=== PATIENT | male | born 1985 ===

== ENCOUNTER 2024-05-08 13:14 | Inpatient (IN) | payer MEDICAID, SELFPAY ==
[2024-05-08] VITALS (10 sets, daily range): BP systolic 100–117; BP diastolic 58–90; PULSE 94–123; RESP 13–24; TEMP 36.4–36.9; O2SAT 96–99; BMI 20.1
--- NOTE | ~2024-05-08 | XR_ITS ---
EXAMINATION: XR CHEST CLINICAL INFORMATION: weakness COMPARISON: None available. TECHNIQUE: Frontal view of the chest was obtained. FINDINGS: No focal consolidation, pulmonary edema, or pleural effusion. Normal cardiomediastinal silhouette. XR/XR chest 1V IMPRESSION: No acute pulmonary disease. Electronically signed by: Rob Wheatley MD 05/08/2024 06:47 PM [facility]
--- NOTE | 2024-05-08 13:52 | ECG_ITS ---
Test Reason : WEAKNESS Blood Pressure : / mmHG Vent. Rate : 128 BPM Atrial Rate : 128 BPM P-R Int : 130 ms QRS Dur : 076 ms QT Int : 314 ms P-R-T Axes : 076 078 062 degrees QTc Int : 458 ms Sinus tachycardia Right atrial enlargement Borderline ECG No previous ECGs available Referred By: Darren Lim Electronically Signed By:Uvaldo Richardson
[2024-05-08 13:53] LABS: Glucose, Whole Blood > 600 mg/dL (60-115)
--- NOTE | 2024-05-08 13:55 | ED_ITS ---
HPI - General Adult General Chief complaint: General Medical Stated complaint: WEAK,BODYACHES PER EMS Time Seen by Provider: 05/08/24 13:41 Source: patient, family (Son), EMS and internal communications specialist Mode of arrival: EMS Limitations: no limitations History of Present Illness ED Provider: DR. Lim HPI narrative: 38-year-old Citizen Of [place] male came in by ambulance for evaluation of 2 weeks of generalized weakness feeling, thirsty, feeling dry mouth and tongue increase urination patient has no history of diabetes. No sick contacts, no recent travel. Related Data Allergies Allergy/AdvReac Type Severity Reaction Status Date / Time No Known Allergies Allergy Verified 05/08/24 13:43 Review of Systems 2 Review of Systems: All other systems are reviewed and are negative Constitutional: Reports as per HPI and Reports no additional constitutional complaints Eyes: Reports as per HPI and Reports no additional eye complaints Reports system reviewed and no additional complaints, except as documented Cardiovascular: Reports as per HPI and Reports no additional cardiovascular complaints Respiratory: Reports as per HPI and Reports no additional respiratory complaints Gastrointestinal: Reports as per HPI and Reports no additional gastrointestinal complaints Genitourinary: Reports no additional female genitourinary complaints Musculoskeletal: Reports no additional musculoskeletal complaints Skin/Breast: Reports system reviewed and no additional complaints, except as docu Psychiatric: Reports no additional psychiatric complaints Endocrine: Reports no additional endocrine complaints Hematologic/Lymphatic: Reports no additional hematologic/lymphatic complaints Allergic/Immunologic: Reports no additional allergic/immunologic complaints Reports system reviewed and no additional complaints, except as documented and Reports Abnormal speech present PMFSH Social History Social History Alcohol intake: current Alcohol intake frequency: a few times a week Smoked in Last 30 Days: No Use of substances other than those prescribed or required for medical reasons: No Advance Directives: No Advance Directives Information Provided: Yes Do you have a plan to hurt others: No Plan Physical Exam ED Vital Signs: Vital Signs - 24 hr 05/08/24 13:41 05/08/24 14:45 05/08/24 16:39 Temperature 97.5 F Pulse Rate 123 H 99 109 H Respiratory Rate 24 H 17 20 Blood Pressure 110/84 117/90 H 100/76 Pulse Oximetry 96 98 98 Oxygen Delivery Method Room Air Room Air Room Air BMI result Body Mass Index 20.1 Vital signs have been reviewed and appear to be correct. Blood pressure elevated. Heart rate normal. Respiratory rate normal. Temperature normal. Oxygen saturation normal. Appearance: Alert. Oriented X3. No acute distress. Head: Normal external exam. Normocephalic. Atraumatic. No Plasencia signs noted. No raccoon eyes noted Eyes: PERRLA. EOMI. Conjunctiva and sclera normal. Eyelids normal. ENT: TM's Normal. Pharynx normal. Uvula midline. Dry mucous membranes. No trismus noted. No drooling noted. No muffled voice noted. Neck: Normal inspection. Neck supple. FROM. No adenopathy. Thyroid Normal. No meningeal signs. No neck mass noted. CVS: Normal heart rate and rhythm. Heart sound normal. No murmurs noted. Pulses normal throughout. Respiratory: No respiratory distress. Painless inspiration. Breath sounds normal. No wheezes/rales/rhonchi noted. Chest nontender. No accessory muscle usage noted or decreased air movement noted. Abdomen: Soft and nontender. Bowel sounds normal in all 4 quadrants. No distention noted. No organomegaly noted. No visible injury noted. Back: No CVA tenderness. Full range of motion noted. Skin: Skin warm and dry. Normal skin color. Normal skin turgor. No rashes/lesions/lacerations noted. Extremities: No lower extremity edema. Extremities exhibit normal range of motion. Extremities nontender. Neuro: Oriented X 3. Cranial nerve exam: II-XII are grossly intact No motor deficit. No sensory deficit. Reflexes normal. Course Reevaluation(s) Reevaluation #1: You onset DM with DKA, will admit the patient to ICU for electrolyte monitoring and start on insulin drip with IV hydration case discussed with Dr. Funes who accepted the patient to ICU. Time: 17:30 Medications Administered Generic Name Dose Route Start Last Admin Trade Name Freq PRN Reason Stop Dose Admin Sodium Chloride 1,000 mls @ 999 mls/hr 05/08/24 17:14 05/08/24 17:22 Ns IV 05/08/24 18:14 999 mls/hr .Q1H1M ONE Administration Discontinued Medications Generic Name Dose Route Start Last Admin Trade Name Freq PRN Reason Stop Dose Admin Sodium Chloride 1,000 mls @ 999 mls/hr 05/08/24 13:52 05/08/24 15:56 Ns IV 05/08/24 14:52 Infused .Q1H1M ONE Infusion Insulin Human Regular 5 unit 05/08/24 13:54 05/08/24 14:44 Insulin Regular, Human 100 Unit/Ml 10 Ml Vial IVPUSH 05/08/24 13:55 5 unit ONCE ONE Administration Medical Decision Making Differential Diagnosis Differential Diagnoses: The differential diagnosis associated with the presentation includes (New onset DM, DKA, electrolyte derangement, dehydration, severe anemia, tachycardia, UTI, pneumonia, pneumothorax, pleural effusion.) Admission/Observation Consideration of admission/observation: Escalation of care including admission/observation considered Consult Healthcare Provider Management of the patient was discussed with: Hospitalist (Dr. Funes) Lab Data MDM Lab Attestation statement: I reviewed the patient's lab results. 05/08/24 14:07 05/08/24 14:07 Labs: Lab Results 05/08/24 05/08/24 05/08/24 Range/Units 13:47 14:07 14:31 WBC 5.2 (4.8-10.8) X10*3/uL RBC 6.93 H (4.60-5.80) X10*6/uL Hgb 17.5 (14.0-18.0) g/dl Hct 55.0 H (42.0-52.0) % MCV 79.4 L (80.0-98.0) fL MCH 25.3 L (27.0-33.0) pg MCHC 31.8 (31.0-36.0) g/dl RDW 13.3 (11.0-16.0) % Plt Count 399 (160-400) X10*3/uL MPV 9.6 (9.4-12.4) fL Immature Gran % (Auto) 0.2 (0.0-0.4) % Neut % (Auto) 52.0 (45-73) % Lymph % (Auto) 37.7 (20-40) % [place] % (Auto) 5.6 (2-11) % Eos % (Auto) 3.7 (0-4) % Baso % (Auto) 0.8 (0-2) % Lymph # (Auto) 1.9 (1.2-4.9) X10*3/uL [place] # (Auto) 0.3 (0.1-1.2) X10*3/uL Eos # (Auto) 0.2 (0.0-0.4) X10*3/uL Baso # (Auto) 0.0 (0.0-0.2) X10*3/uL Abs Immat Gran (auto) 0.01 (0.00-0.03) X10*3/uL Absolute Neuts (auto) 2.7 (2.0-8.3) x10*3/uL Absolute Nucleated RBC 0.000 (0.0-0.012) X10*3/uL Nucleated RBC % (auto) 0.0 (0.0-0.2) /100WBC PT (10.9-12.4) SEC INR (0.9-1.1) VBG pH (7.32-7.43) VBG pCO2 mmHg VBG pO2 mmHg VBG HCO3 (22-26) mmol/L VBG O2 Saturation % VBG Base Excess mmol/L Sodium 145 (135-145) mmol/L Potassium 5.4 H (3.3-5.1) mmol/L Chloride 101 (96-108) mmol/L Carbon Dioxide 13 L (22-29) mmol/L Anion Gap 36 H (12-20) BUN 21 H (9-16) mg/dL Creatinine 2.08 H (0.5-1.4) mg/dL Estim Creat Clear Calc 38.1 Estimated GFR 36 POC Glucose > 600 H* (60-115) mg/dL Random Glucose 730 H* (60-115) mg/dL Calcium 10.2 (8.4-10.2) mg/dL Total Bilirubin 0.4 (0.0-1.0) mg/dL Direct Bilirubin 0.1 (0.0-0.5) mg/dL AST 42 H (5-37) U/L ALT 54 H (0-40) U/L Alkaline Phosphatase 149 H (39-117) U/L Troponin I High Sens < 2.7 (<3.5-35.0) ng/L Total Protein 9.5 H (6.5-8.0) g/dL Albumin 4.8 (3.5-5.0) g/dL Beta-Hydroxybutyrate (0.02-0.27) mmol/L Urine Color Yellow Urine Appearance Clear Urine pH 5.0 (5.0-9.0) Ur Specific Kelly >= 1.030 H (1.005-1.025) Urine Protein 30 (1+) H (Neg-Trace) mg/dL Urine Glucose (UA) >=1000 H (Negative) mg/dL Urine Ketones >=160 (Negative) mg/dL Urine Blood Negative (Negative) Urine Nitrite Negative (Negative) Ur Leukocyte Esterase Negative (Negative) Urine RBC 0-2 (0-2) /HPF Urine WBC 0-5 (0-5) /HPF Ur Squamous Epith Cells 0-2 (0-2) /HPF Urine Bacteria None Seen (None Seen) Hyaline Casts 0-2 (0-2) /LPF Influenza Type A (PCR) NEGATIVE (Negative) Influenza Type B (PCR) NEGATIVE (Negative) RSV RNA Qual (PCR) NEGATIVE (Negative) SARS-CoV-2 RNA (RT-PCR) NEGATIVE (Negative) 05/08/24 05/08/24 05/08/24 Range/Units 14:41 15:34 16:22 WBC (4.8-10.8) X10*3/uL RBC (4.60-5.80) X10*6/uL Hgb (14.0-18.0) g/dl Hct (42.0-52.0) % MCV (80.0-98.0) fL MCH (27.0-33.0) pg MCHC (31.0-36.0) g/dl RDW (11.0-16.0) % Plt Count (160-400) X10*3/uL MPV (9.4-12.4) fL Immature Gran % (Auto) (0.0-0.4) % Neut % (Auto) (45-73) % Lymph % (Auto) (20-40) % [place] % (Auto) (2-11) % Eos % (Auto) (0-4) % Baso % (Auto) (0-2) % Lymph # (Auto) (1.2-4.9) X10*3/uL [place] # (Auto) (0.1-1.2) X10*3/uL Eos # (Auto) (0.0-0.4) X10*3/uL Baso # (Auto) (0.0-0.2) X10*3/uL Abs Immat Gran (auto) (0.00-0.03) X10*3/uL Absolute Neuts (auto) (2.0-8.3) x10*3/uL Absolute Nucleated RBC (0.0-0.012) X10*3/uL Nucleated RBC % (auto) (0.0-0.2) /100WBC PT 11.3 (10.9-12.4) SEC INR 1.0 (0.9-1.1) VBG pH (7.32-7.43) VBG pCO2 mmHg VBG pO2 mmHg VBG HCO3 (22-26) mmol/L VBG O2 Saturation % VBG Base Excess mmol/L Sodium (135-145) mmol/L Potassium (3.3-5.1) mmol/L Chloride (96-108) mmol/L Carbon Dioxide (22-29) mmol/L Anion Gap (12-20) BUN (9-16) mg/dL Creatinine (0.5-1.4) mg/dL Estim Creat Clear Calc Estimated GFR POC Glucose > 600 H* > 600 H* (60-115) mg/dL Random Glucose (60-115) mg/dL Calcium (8.4-10.2) mg/dL Total Bilirubin (0.0-1.0) mg/dL Direct Bilirubin (0.0-0.5) mg/dL AST (5-37) U/L ALT (0-40) U/L Alkaline Phosphatase (39-117) U/L Troponin I High Sens (<3.5-35.0) ng/L Total Protein (6.5-8.0) g/dL Albumin (3.5-5.0) g/dL Beta-Hydroxybutyrate (0.02-0.27) mmol/L Urine Color Urine Appearance Urine pH (5.0-9.0) Ur Specific Kelly (1.005-1.025) Urine Protein (Neg-Trace) mg/dL Urine Glucose (UA) (Negative) mg/dL Urine Ketones (Negative) mg/dL Urine Blood (Negative) Urine Nitrite (Negative) Ur Leukocyte Esterase (Negative) Urine RBC (0-2) /HPF Urine WBC (0-5) /HPF Ur Squamous Epith Cells (0-2) /HPF Urine Bacteria (None Seen) Hyaline Casts (0-2) /LPF Influenza Type A (PCR) (Negative) Influenza Type B (PCR) (Negative) RSV RNA Qual (PCR) (Negative) SARS-CoV-2 RNA (RT-PCR) (Negative) 05/08/24 05/08/24 05/08/24 Range/Units 16:32 16:34 16:49 WBC (4.8-10.8) X10*3/uL RBC (4.60-5.80) X10*6/uL Hgb (14.0-18.0) g/dl Hct (42.0-52.0) % MCV (80.0-98.0) fL MCH (27.0-33.0) pg MCHC (31.0-36.0) g/dl RDW (11.0-16.0) % Plt Count (160-400) X10*3/uL MPV (9.4-12.4) fL Immature Gran % (Auto) (0.0-0.4) % Neut % (Auto) (45-73) % Lymph % (Auto) (20-40) % [place] % (Auto) (2-11) % Eos % (Auto) (0-4) % Baso % (Auto) (0-2) % Lymph # (Auto) (1.2-4.9) X10*3/uL [place] # (Auto) (0.1-1.2) X10*3/uL Eos # (Auto) (0.0-0.4) X10*3/uL Baso # (Auto) (0.0-0.2) X10*3/uL Abs Immat Gran (auto) (0.00-0.03) X10*3/uL Absolute Neuts (auto) (2.0-8.3) x10*3/uL Absolute Nucleated RBC (0.0-0.012) X10*3/uL Nucleated RBC % (auto) (0.0-0.2) /100WBC PT (10.9-12.4) SEC INR (0.9-1.1) VBG pH 7.16 L* 7.15 L* (7.32-7.43) VBG pCO2 34 35 mmHg VBG pO2 44 49 mmHg VBG HCO3 12 L 12 L (22-26) mmol/L VBG O2 Saturation 73.0 73.0 % VBG Base Excess -14.7 -15.0 mmol/L Sodium (135-145) mmol/L Potassium (3.3-5.1) mmol/L Chloride (96-108) mmol/L Carbon Dioxide (22-29) mmol/L Anion Gap (12-20) BUN (9-16) mg/dL Creatinine (0.5-1.4) mg/dL Estim Creat Clear Calc Estimated GFR POC Glucose (60-115) mg/dL Random Glucose (60-115) mg/dL Calcium (8.4-10.2) mg/dL Total Bilirubin (0.0-1.0) mg/dL Direct Bilirubin (0.0-0.5) mg/dL AST (5-37) U/L ALT (0-40) U/L Alkaline Phosphatase (39-117) U/L Troponin I High Sens (<3.5-35.0) ng/L Total Protein (6.5-8.0) g/dL Albumin (3.5-5.0) g/dL Beta-Hydroxybutyrate 11.23 H (0.02-0.27) mmol/L Urine Color Urine Appearance Urine pH (5.0-9.0) Ur Specific Kelly (1.005-1.025) Urine Protein (Neg-Trace) mg/dL Urine Glucose (UA) (Negative) mg/dL Urine Ketones (Negative) mg/dL Urine Blood (Negative) Urine Nitrite (Negative) Ur Leukocyte Esterase (Negative) Urine RBC (0-2) /HPF Urine WBC (0-5) /HPF Ur Squamous Epith Cells (0-2) /HPF Urine Bacteria (None Seen) Hyaline Casts (0-2) /LPF Influenza Type A (PCR) (Negative) Influenza Type B (PCR) (Negative) RSV RNA Qual (PCR) (Negative) SARS-CoV-2 RNA (RT-PCR) (Negative) Independent Interpretation I performed an independent interpretation of an: Plain X-Ray (Chest: No acute intrathoracic pathology.) Radiology Impression Discussion of test interpretation with radiology: I have reviewed the radiologist's reading. Critical Care Time Critical Care Time Critical Care Time: Yes Total Critical Care Time: 60 Attestation: The patient was critically ill with a high probability of imminent or life- threatening deterioration. I spent greater than 30 minutes of discontinuous time evaluating the patient, delivering critical care at the bedside, discussing evaluating data with consultants. Critical care time does not include time spent performing separately billable procedures or teaching. Time spent performing critical care was 60 minutes. Discharge Plan Discharge Clinical Impression: DKA (diabetic ketoacidosis) Patient Disposition: Admitted As Inpatient Print Language: Gladysili
[2024-05-08 14:14] LABS: MANUAL DIFF FLAG NO
[2024-05-08 14:15] LABS: Basophils Percent Auto 0.8 % (0-2); Eosinophils Absolute Auto 0.2 X10*3/uL (0.0-0.4); Eosinophils Percent Auto 3.7 % (0-4); Hemoglobin 17.5 g/dl (14.0-18.0); Imm Gran Abs Auto 0.01 X10*3/uL (0.00-0.03); Imm Gran Pct Auto 0.2 % (0.0-0.4); Lymphocytes Absolute Auto 1.9 X10*3/uL (1.2-4.9); Lymphocytes Percent Auto 37.7 % (20-40); Mean Corpuscular HGB Conc 31.8 g/dl (31.0-36.0); Mean Corpuscular Hemoglobin 25.3 pg (27.0-33.0); Mean Corpuscular Volume 79.4 fL (80.0-98.0); Mean Platelet Volume 9.6 fL (9.4-12.4); Monocytes Absolute Auto 0.3 X10*3/uL (0.1-1.2); Monocytes Percent Auto 5.6 % (2-11); Neutrophils Absolute Auto 2.7 x10*3/uL (2.0-8.3); Platelet Count 399 X10*3/uL (160-400); Red Blood Count 6.93 X10*6/uL (4.60-5.80); Red Cell Distribution Width 13.3 % (11.0-16.0); White Blood Count 5.2 X10*3/uL (4.8-10.8)
[2024-05-08] MEDS: 0.9 % Sodium Chloride 1,000 ML 999 ML IV ×2 (14:27→17:22)
[2024-05-08] MEDS: Insulin Regular, Human 100 UNIT/ML 10 ML VIAL IVPUSH (14:44)
[2024-05-08 14:50] LABS: Troponin-I High Sensitivity < 2.7 ng/L (<3.5-35.0)
[2024-05-08 14:53] LABS: Glucose, Whole Blood > 600 mg/dL (60-115)
--- NOTE | 2024-05-08 14:53 | PC.NURSE ---
patient a&ox2, iv inserted, some labs drawn- tech to draw remaining labs, nasal swab performed, ekg performed, ekg monitor tech applied- pt st on monitor, poc obtained read high x2, urine obtained, IVF started per order, pt medicated with insulin per orders. pt and son state he has no history of diabetes and states he has excessive thirst. son continues to ask for his father to have something to drink, son was educated by this nurse and Dr. Lim that he is unable to have anything other than a few ice chips and he will be given IVF for the time being. call nuno within reach, plan of care ongoing.
[2024-05-08 14:58] LABS: Appearance Urine Clear; Color Urine Yellow; Glucose Urine UA >=1000 mg/dL (Negative); Leukocyte Esterase Urine Negative (Negative); Nitrite Urine Negative (Negative); Specific Gravity - Urine >= 1.030 (1.005-1.025); UMIC TRIGGER UACC YES; Urine Blood Negative (Negative); Urine Ketones >=160 mg/dL (Negative); Urine Protein 30 (1+) mg/dL (Neg-Trace)
[2024-05-08 15:03] LABS: Bacteria Urine None Seen (None Seen); Hyaline Casts Urine 0-2 /LPF (0-2); RBC Urine 0-2 /HPF (0-2); Squamous Epithelial Cell Urine 0-2 /HPF (0-2); WBC Urine 0-5 /HPF (0-5)
[2024-05-08 15:34] LABS: Influenza A PCR NEGATIVE (Negative); Influenza B PCR NEGATIVE (Negative); Resp Syncy Virus RNA Qual PCR NEGATIVE (Negative); SARS COV2 PCR INHOUSE NEGATIVE (Negative)
[2024-05-08 15:48] LABS: Prothrombin Time 11.3 SEC (10.9-12.4)
--- NOTE | 2024-05-08 16:26 | PC.NURSE ---
pt a difficult draw, attempting with another PCT to draw pt
[2024-05-08 16:28] LABS: Glucose, Whole Blood > 600 mg/dL (60-115)
--- NOTE | 2024-05-08 16:31 | MHC.EDTECH ---
late entry: this tech did a POC glucose test on the pt and the result came out as HI, reported to RN
--- NOTE | 2024-05-08 16:40 | PC.NURSE ---
[id number] planning director utilized
[2024-05-08 16:59] LABS: VBG Base Excess -14.7 mmol/L; VBG HCO3 12 mmol/L (22-26); VBG pCO2 34 mmHg; VBG pH 7.16 (7.32-7.43); VBG pO2 44 mmHg
[2024-05-08 16:59] LABS: VBG HCO3 12 mmol/L (22-26); VBG pCO2 35 mmHg; VBG pH 7.15 (7.32-7.43); VBG pO2 49 mmHg
[2024-05-08 17:01] LABS: Albumin Level 4.8 g/dL (3.5-5.0); Anion Gap 36 (12-20); Aspartate Amino Transferase 42 U/L (5-37); Bilirubin Direct 0.1 mg/dL (0.0-0.5); Bilirubin Total 0.4 mg/dL (0.0-1.0); Blood Urea Nitrogen 21 mg/dL (9-16); Calcium 10.2 mg/dL (8.4-10.2); Carbon Dioxide 13 mmol/L (22-29); Chloride 101 mmol/L (96-108); Creatinine Clr Calc Pharmacy 38.1; Estimated Glomerular Filt Rate 36; Glucose Random 730 mg/dL (60-115); Potassium 5.4 mmol/L (3.3-5.1); Sodium 145 mmol/L (135-145); Total Protein 9.5 g/dL (6.5-8.0)
[2024-05-08 17:02] LABS: Venous Blood Gas Refer to POC result
[2024-05-08 17:23] LABS: Beta-Hydroxybutyrate 11.23 mmol/L (0.02-0.27)
[2024-05-08 17:24] LABS: Alanine Aminotransferase 54 U/L (0-40); Alkaline Phosphatase 149 U/L (39-117)
[2024-05-08] MEDS: Insulin Regular/NS 100 UNIT/100 ML PLAST..BAG 7 UNIT IVCONT (17:56)
[2024-05-08] MEDS: Heparin Sodium,Porcine 5,000 UNIT/ML VIAL 5000 UNIT SUBCUT (18:02)
--- NOTE | 2024-05-08 18:17 | PC.NURSE ---
This RN attempted to call ED for handoff - unable to obtain handoff at this time.
[2024-05-08] MEDS: Lactated Ringers 1,000 ML 150 ML IVCONT (18:46)
[2024-05-08 19:03] LABS: Glucose, Whole Blood 482 mg/dL (60-115)
[2024-05-08 20:06] LABS: Glucose, Whole Blood 361 mg/dL (60-115)
--- NOTE | 2024-05-08 20:24 | PM.CCHP ---
History of Present Illness Date of Service: 05/08/24 Attending physician on admission: Toro Funes Chief Complaint: Generalized weakness ?The patient is a 38-year-old [place] from [facility] speaking only male with no past medical history who presented to the emergency department after 2 weeks with generalized weakness, thirsty, and increased urination.? He has no history of diabetes.?? On arrival to the emergency department,? patient is tachycardic to 120s,? afebrile. Laboratory data significant for? venous gas:? 7.16/34/44/12, serum potassium 5.4,? serum bicarb 13, anion gap 36, BUN 21, creatinine 2.08, random glucose 730, beta hydroxybutyrate 11.23 ? ED course:? the patient received a total of 2 L bolus,? 5 units IV push of insulin and initiated on insulin drip.? On arrival to ICU,? patient?s son brought medications from home,? were states the patient is on Pylera (Bismuth subcitrate, metronidazole, tetracycline) combination drug,? but patient was unsure as to why he was taking this medication,? he states he was given medication by? [facility] provider after he had blood work done. Will assume it is for treatment of? H pylori as patient was also placed on famotidine. But will obtain records from facility? ? Review of Systems Review of Systems: Yes all other systems are reviewed and are negative [facility] Social History Social History Household Members: Spouse and Family Housing: House Alcohol intake: current Alcohol intake frequency: a few times a week Patient Tobacco Use Status: Never used Tobacco Smoked in Last 30 Days: No Use of substances other than those prescribed or required for medical reasons: No Currently Displaying Signs/Symptoms of Drug Intoxication Withdrawal: No Any prior treatment program specific to substance use: No Have you been hit, kicked, punched, or otherwise hurt by someone within the past year? If so, by whom?: No Do you feel safe in your current relationship?: No Is there a partner from a previous relationship who is making you feel unsafe now?: No Are you made to feel afraid or neglected: No Advance Directives: No Advance Directives Information Provided: Yes Do you have a plan to hurt others: No Plan Recently lost weight without trying: No Eating poorly because of decreased appetite: No Nutrition Risks: Acute nausea or vomiting x1 week and Diabetes new onset/Uncontrolled Poor oral hygiene: No Meds Allergies Allergy/AdvReac Type Severity Reaction Status Date / Time No Known Allergies Allergy Verified 05/08/24 13:43 Active Medications: Current Medications Heparin Sodium (Porcine) (Heparin Sodium,Porcine 5,000 Unit/Ml Vial) 5,000 unit SUBCUT Q8H [facility] Last Admin: 05/08/24 18:02 Dose: 5,000 unit Insulin Human Regular (Myxredlin) 100 unit in 100 mls @ 7 mls/hr IVCONT .[id number] [facility]; Protocol Last Titration: 05/08/24 20:07 Dose: 3.5 unit/hr, 3.5 mls/hr Dextrose (D10) 250 mls @ 750 mls/hr IV Q30M PRN PRN Reason: BG <70 Lactated Ringer's (Lr) 1,000 mls @ 150 mls/hr IVCONT .[id number] [facility] Last Admin: 05/08/24 18:46 Dose: 150 mls/hr Sodium Chloride (0.9 % Sodium Chloride Flush 3 Ml Syringe) 3 ml IVFLUSH QSHIFT [facility] Home Medications ?Medication ?Instructions ?Recorded ?Confirmed ?Last Taken ?Type acetaminophen 500 mg tablet 1,000 mg PO Q6H PRN pain 05/08/24 05/08/24 Unknown History bismuth subcit K 140 3 cap PO QIDACHS 05/08/24 05/08/24 05/05/24 History mg-metronidazole 125 mg-tetracycline 125 mg cap (Pylera) calcium carbonate (Ton-Gest 500 mg PO BID PRN Heartburn 05/08/24 05/08/24 05/05/24 History Antacid) famotidine 20 mg tablet 20 mg PO BID 05/08/24 05/08/24 05/05/24 History naproxen 500 mg tablet 500 mg PO BIDWM 05/08/24 05/08/24 05/05/24 History pantoprazole 20 mg tablet,delayed 20 mg PO BID@0630,1630 05/08/24 05/08/24 05/05/24 History release Physical Exam Vital Signs: Vital Signs: Last Vital Signs Temp 98.3 F 05/08/24 19:44 Pulse 106 H 12/23/24 19:44 Resp 17 05/08/24 19:44 BP 106/78 05/08/24 19:44 Pulse Ox 99 05/08/24 20:18 O2 Del Method Room Air 05/08/24 20:18 BMI result Body Mass Index 20.1 ?General:? Alert oriented x3 no acute distress.? Speaking full sentences.? Speech is well articulated, thought process is coherent.? Following all commands. ?HEENT:? Head is normocephalic, atraumatic, pupils equal round reactive to light accommodation bilaterally.? Extraocular movements appear intact.? Buccal mucosa is dry, lips dry, , Neck is supple without lymphadenopathy. ?Cardiac:? Clear S1-S2, no murmurs rubs or gallops. ?Pulmonary:? Clear to auscultation, no wheezes, rales or rhonchi. ?Abdomen:? ?Abdomen soft, non-tender, non-distended. Normal bowel sounds. No pulsatile mass. No hepatosplenomegaly. ?Musculoskeletal:? Moving all 4 extremities upon request a major joints, there is no crepitus or tenderness.? The strength is 5/5 bilaterally and throughout all 4 extremities.? Gait not assessed at this point. ?Neurologic:? cranial nerves 2-12 are grossly intact.? No focal deficits noted.Motor strength as above.?? ?Skin:? Intact, no lesions, edema, erythema, clubbing or cyanosis.? No ulcers. Vascular:? 2+ pulses upper and lower extremities distally.? Results Labs 05/09/24 05:18 05/09/24 05:18 Labs: Laboratory Results - last 24 hr 05/08/24 05/08/24 05/08/24 13:47 14:07 14:31 MCV 79.4 L MCH 25.3 L MCHC 31.8 RDW 13.3 Plt Count 399 MPV 9.6 Immature Gran % (Auto) 0.2 Neut % (Auto) 52.0 Lymph % (Auto) 37.7 Turner % (Auto) 5.6 Eos % (Auto) 3.7 Baso % (Auto) 0.8 Lymph # (Auto) 1.9 Turner # (Auto) 0.3 Eos # (Auto) 0.2 Baso # (Auto) 0.0 Abs Immat Gran (auto) 0.01 Absolute Neuts (auto) 2.7 Absolute Nucleated RBC 0.000 Nucleated RBC % (auto) 0.0 PT INR VBG pH VBG pCO2 VBG pO2 VBG HCO3 VBG O2 Saturation VBG Base Excess Anion Gap 36 H Estim Creat Clear Calc 38.1 Estimated GFR 36 POC Glucose > 600 H* Random Glucose 730 H* Calcium 10.2 Total Bilirubin 0.4 Direct Bilirubin 0.1 AST 42 H ALT 54 H Alkaline Phosphatase 149 H Troponin I High Sens < 2.7 Total Protein 9.5 H Albumin 4.8 Beta-Hydroxybutyrate Urine Color Yellow Urine Appearance Clear Urine pH 5.0 Ur Specific [place] >= 1.030 H Urine Protein 30 (1+) H Urine Glucose (UA) >=1000 H Urine Ketones >=160 Urine Blood Negative Urine Nitrite Negative Ur Leukocyte Esterase Negative Urine RBC 0-2 Urine WBC 0-5 Ur Squamous Epith Cells 0-2 Urine Bacteria None Seen Hyaline Casts 0-2 Influenza Type A (PCR) NEGATIVE Influenza Type B (PCR) NEGATIVE RSV RNA Qual (PCR) NEGATIVE SARS-CoV-2 RNA (RT-PCR) NEGATIVE 05/08/24 05/08/24 05/08/24 14:41 15:34 16:22 MCV MCH MCHC RDW Plt Count MPV Immature Gran % (Auto) Neut % (Auto) Lymph % (Auto) Turner % (Auto) Eos % (Auto) Baso % (Auto) Lymph # (Auto) Turner # (Auto) Eos # (Auto) Baso # (Auto) Abs Immat Gran (auto) Absolute Neuts (auto) Absolute Nucleated RBC Nucleated RBC % (auto) PT 11.3 INR 1.0 VBG pH VBG pCO2 VBG pO2 VBG HCO3 VBG O2 Saturation VBG Base Excess Anion Gap Estim Creat Clear Calc Estimated GFR POC Glucose > 600 H* > 600 H* Random Glucose Calcium Total Bilirubin Direct Bilirubin AST ALT Alkaline Phosphatase Troponin I High Sens Total Protein Albumin Beta-Hydroxybutyrate Urine Color Urine Appearance Urine pH Ur Specific [place] Urine Protein Urine Glucose (UA) Urine Ketones Urine Blood Urine Nitrite Ur Leukocyte Esterase Urine RBC Urine WBC Ur Squamous Epith Cells Urine Bacteria Hyaline Casts Influenza Type A (PCR) Influenza Type B (PCR) RSV RNA Qual (PCR) SARS-CoV-2 RNA (RT-PCR) 05/08/24 05/08/24 05/08/24 16:32 16:34 16:49 MCV MCH MCHC RDW Plt Count MPV Immature Gran % (Auto) Neut % (Auto) Lymph % (Auto) Turner % (Auto) Eos % (Auto) Baso % (Auto) Lymph # (Auto) Turner # (Auto) Eos # (Auto) Baso # (Auto) Abs Immat Gran (auto) Absolute Neuts (auto) Absolute Nucleated RBC Nucleated RBC % (auto) PT INR VBG pH 7.16 L* 7.15 L* VBG pCO2 34 35 VBG pO2 44 49 VBG HCO3 12 L 12 L VBG O2 Saturation 73.0 73.0 VBG Base Excess -14.7 -15.0 Anion Gap Estim Creat Clear Calc Estimated GFR POC Glucose Random Glucose Calcium Total Bilirubin Direct Bilirubin AST ALT Alkaline Phosphatase Troponin I High Sens Total Protein Albumin Beta-Hydroxybutyrate 11.23 H Urine Color Urine Appearance Urine pH Ur Specific [place] Urine Protein Urine Glucose (UA) Urine Ketones Urine Blood Urine Nitrite Ur Leukocyte Esterase Urine RBC Urine WBC Ur Squamous Epith Cells Urine Bacteria Hyaline Casts Influenza Type A (PCR) Influenza Type B (PCR) RSV RNA Qual (PCR) SARS-CoV-2 RNA (RT-PCR) 05/08/24 05/08/24 18:59 20:02 MCV MCH MCHC RDW Plt Count MPV Immature Gran % (Auto) Neut % (Auto) Lymph % (Auto) Turner % (Auto) Eos % (Auto) Baso % (Auto) Lymph # (Auto) Turner # (Auto) Eos # (Auto) Baso # (Auto) Abs Immat Gran (auto) Absolute Neuts (auto) Absolute Nucleated RBC Nucleated RBC % (auto) PT INR VBG pH VBG pCO2 VBG pO2 VBG HCO3 VBG O2 Saturation VBG Base Excess Anion Gap Estim Creat Clear Calc Estimated GFR POC Glucose 482 H* 361 H* Random Glucose Calcium Total Bilirubin Direct Bilirubin AST ALT Alkaline Phosphatase Troponin I High Sens Total Protein Albumin Beta-Hydroxybutyrate Urine Color Urine Appearance Urine pH Ur Specific [place] Urine Protein Urine Glucose (UA) Urine Ketones Urine Blood Urine Nitrite Ur Leukocyte Esterase Urine RBC Urine WBC Ur Squamous Epith Cells Urine Bacteria Hyaline Casts Influenza Type A (PCR) Influenza Type B (PCR) RSV RNA Qual (PCR) SARS-CoV-2 RNA (RT-PCR) Imaging Radiologist's Impressions: Impressions Chest X-Ray 05/08/24 13:52 IMPRESSION: No acute pulmonary disease. Electronically signed by: Rob Wheatley MD 05/08/2024 06:47 PM EST Assessment and Plan (1) DKA (diabetic ketoacidosis): Status: Acute (2) Diabetes mellitus: Status: Acute Plan 38-year-old? so he was speaking only patient with no past medical history now newly diagnosed diabetic in diabetic ketoacidosis? requiring insulin drip Neuro:? no acute issues?? Cardiac:? no acute issues Pulmonary:? no acute issues?? Renal:? WALLY- ? most likely related to hypoperfusion, nonoliguric.? Continue IV fluid.? Continue to check renal induces and urine output Hyperkalemia-? most likely related to DKA.? Closely monitor electrolytes GI:?? ? H pylori:? patient was? taking Pylera as well as famotidine for 2 weeks,? assuming for the treatment of H pylori.? Office is closed at this time but will? request records in the morning to confirm diagnosis.? We will continue medications,? as this could be the possible exacerbation for DKA Endo:?Newly diagnosed diabetes /diabetic ketoacidosis-? continue insulin drip until her gap is close. Follow DKA protocol? ID:? ? see GI plan ? Heme/Onc:? No acute issues. Psych:? No acute issues. Miscellaneous:? No acute issues. Prophylaxis: ? heparin subcut Diet: ? NPO? with sips of water ice chips Critical care time: does not qualify for critical care? CODE: FULL
--- NOTE | 2024-05-08 20:38 | PHA.MEDREC ---
Addendum entered by Wagner Albert RPh 05/08/24 20:47: Reviewed by [facility] Original Note: Pharmacy Consult ? Medication Reconciliation Pharmacy has completed the medication reconciliation. Spoke to patient through [employer] [id number] to confirm med list. patient states he has been in the [place] for 11 moths. Patient had a bag of medication with him. patient states he last took his medications 3 days ago.
[2024-05-08 20:47] LABS: VBG HCO3 10 mmol/L (22-26); VBG pCO2 19 mmHg; VBG pH 7.32 (7.32-7.43); VBG pO2 207 mmHg
[2024-05-08 21:00] LABS: Venous Blood Gas Refer to POC result
[2024-05-08 21:03] LABS: Glucose, Whole Blood 270 mg/dL (60-115)
[2024-05-08 21:14] LABS: Anion Gap 23 (12-20); Blood Urea Nitrogen 17 mg/dL (9-16); Calcium 9.2 mg/dL (8.4-10.2); Carbon Dioxide 9 mmol/L (22-29); Chloride 122 mmol/L (96-108); Creatinine Clr Calc Pharmacy 52.1; Estimated Glomerular Filt Rate 51; Glucose Random 347 mg/dL (60-115); Magnesium 2.4 mg/dL (1.6-2.6); Phosphorus 2.6 mg/dL (2.7-4.5); Sodium 150 mmol/L (135-145)
[2024-05-08] MEDS: Famotidine 20 MG TABLET PO (21:40)
[2024-05-08 21:46] LABS: Lactic Acid 1.4 mmol/L (0.5-2.0)
[2024-05-08 21:59] LABS: Glucose, Whole Blood 289 mg/dL (60-115)
[2024-05-08] MEDS: Potassium Phosphate/NS 15 MMOL/250 ML PLAST..BAG 62.5 MMOL IV (22:19)
[2024-05-08 22:27] LABS: Lipase 19 U/L (8-78)
[2024-05-08 23:11] LABS: Glucose, Whole Blood 219 mg/dL (60-115)
[2024-05-09] VITALS (17 sets, daily range): BP systolic 105–120; BP diastolic 62–85; PULSE 60–93; RESP 10–18; TEMP 36.2–37; O2SAT 98–100; BMI 20.1
[2024-05-09 00:04] LABS: Glucose, Whole Blood 208 mg/dL (60-115)
[2024-05-09 01:17] LABS: Glucose, Whole Blood 220 mg/dL (60-115)
[2024-05-09] MEDS: Dextrose 5 % and Lactated Ring 1,000 ML 150 ML IVCONT ×2 (01:18→08:26)
[2024-05-09] MEDS: Heparin Sodium,Porcine 5,000 UNIT/ML VIAL 5000 UNIT SUBCUT ×3 (01:18→16:52)
[2024-05-09 03:02] LABS: Glucose, Whole Blood 221 mg/dL (60-115)
[2024-05-09 03:02] LABS: Glucose, Whole Blood 269 mg/dL (60-115)
[2024-05-09 04:11] LABS: Glucose, Whole Blood 228 mg/dL (60-115)
[2024-05-09 05:13] LABS: Glucose, Whole Blood 228 mg/dL (60-115)
[2024-05-09] MEDS: Pantoprazole Sodium 40 MG/10 ML VIAL IVPUSH ×2 (05:17→16:49)
[2024-05-09 05:23] LABS: VBG Base Excess -2.5 mmol/L; VBG HCO3 20 mmol/L (22-26); VBG pCO2 31 mmHg; VBG pH 7.42 (7.32-7.43); VBG pO2 66 mmHg
[2024-05-09 05:27] LABS: Venous Blood Gas Refer to POC result
[2024-05-09 05:28] LABS: MANUAL DIFF FLAG NO
[2024-05-09 05:30] LABS: Basophils Percent Auto 0.8 % (0-2); Eosinophils Absolute Auto 0.4 X10*3/uL (0.0-0.4); Eosinophils Percent Auto 8.2 % (0-4); Hematocrit 41.1 % (42.0-52.0); Hemoglobin 13.8 g/dl (14.0-18.0); Imm Gran Abs Auto 0.01 X10*3/uL (0.00-0.03); Imm Gran Pct Auto 0.2 % (0.0-0.4); Lymphocytes Absolute Auto 2.7 X10*3/uL (1.2-4.9); Lymphocytes Percent Auto 55.6 % (20-40); Mean Corpuscular HGB Conc 33.6 g/dl (31.0-36.0); Mean Corpuscular Hemoglobin 25.7 pg (27.0-33.0); Mean Corpuscular Volume 76.7 fL (80.0-98.0); Mean Platelet Volume 8.9 fL (9.4-12.4); Monocytes Absolute Auto 0.5 X10*3/uL (0.1-1.2); Monocytes Percent Auto 9.6 % (2-11); Neutrophils Absolute Auto 1.2 x10*3/uL (2.0-8.3); Neutrophils Percent Auto 25.6 % (45-73); Platelet Count 241 X10*3/uL (160-400); Red Blood Count 5.36 X10*6/uL (4.60-5.80); Red Cell Distribution Width 12.4 % (11.0-16.0); White Blood Count 4.8 X10*3/uL (4.8-10.8)
[2024-05-09 05:43] LABS: Albumin Level 3.4 g/dL (3.5-5.0); Anion Gap 13 (12-20); Blood Urea Nitrogen 13 mg/dL (9-16); Calcium 8.4 mg/dL (8.4-10.2); Carbon Dioxide 20 mmol/L (22-29); Chloride 122 mmol/L (96-108); Creatinine Clr Calc Pharmacy 71.4; Estimated Glomerular Filt Rate > 60; Glucose Random 229 mg/dL (60-115); Magnesium 2.2 mg/dL (1.6-2.6); Phosphorus 2.4 mg/dL (2.7-4.5); Potassium 3.8 mmol/L (3.3-5.1); Sodium 151 mmol/L (135-145)
[2024-05-09 06:08] LABS: Glucose, Whole Blood 222 mg/dL (60-115)
[2024-05-09 07:20] LABS: Glucose, Whole Blood 173 mg/dL (60-115)
[2024-05-09] MEDS: [UNRECOGNIZED DRUG - OTHER] PO ×4 (07:40→21:20)
[2024-05-09] MEDS: METRONIDAZOLE PO ×4 (07:40→21:20)
[2024-05-09] MEDS: Famotidine 20 MG TABLET PO ×2 (07:40→21:20)
[2024-05-09] MEDS: TETRACYCLINE PO ×4 (07:40→21:20)
[2024-05-09] MEDS: 0.9 % Sodium Chloride Flush 3 ML SYRINGE IVFLUSH ×3 (07:43→21:27)
[2024-05-09] MEDS: Potassium Phosphate/NS 15 MMOL/250 ML PLAST..BAG 62.5 MMOL IV (07:43)
[2024-05-09 08:05] LABS: Glucose, Whole Blood 177 mg/dL (60-115)
[2024-05-09 09:17] LABS: Glucose, Whole Blood 108 mg/dL (60-115)
--- NOTE | 2024-05-09 09:56 | P.PNCC_ITS ---
Subjective Subjective Date of Service: 05/09/24 Interval History: 38-year-old gentleman with no past admitted on 05/08/2020 with secondary to new diagnosis diabetes mellitus by diabetic ketoacidosis requiring insulin drip. No events overnight. Titrated off insulin drip. Critical Care Time (minutes): 0 Physical Exam 2 Vital Signs: Vital Signs: Last Vital Signs Temp 97.4 F 05/09/24 08:00 Pulse 72 05/09/24 09:00 Resp 11 L 05/09/24 09:00 BP 111/79 05/09/24 09:00 Pulse Ox 99 05/09/24 09:00 O2 Del Method Room Air 05/09/24 09:00 BMI result Body Mass Index 20.1 Const: General: no acute distress, alert and awake Eyes: Sclerae: sclerae normal EOM: EOMs intact bilaterally Neck: Neck: Yes no lymphadenopathy, Yes trachea midline and Yes supple Resp: Effort & Inspection: normal respiratory effort and no respiratory distress Auscultation: clear to auscultation bilaterally Cardio: Rate: regular rate Rhythm: regular rhythm Heart sounds: no gallops, no murmurs and no rubs GI: Palpation (GI): Soft to palpation and Other GI palpation findings present ( Nontender) Auscultation: normal bowel sounds Extrem: General: Yes no pedal edema, No clubbing and No cyanosis Objective Data Labs 05/09/24 05:18 05/09/24 05:18 Labs: Laboratory Results - last 24 hr 05/08/24 05/08/24 05/08/24 13:47 14:07 14:31 WBC 5.2 RBC 6.93 H Hgb 17.5 Hct 55.0 H MCV 79.4 L MCH 25.3 L MCHC 31.8 RDW 13.3 Plt Count 399 MPV 9.6 Immature Gran % (Auto) 0.2 Neut % (Auto) 52.0 Lymph % (Auto) 37.7 [place] % (Auto) 5.6 Eos % (Auto) 3.7 Baso % (Auto) 0.8 Lymph # (Auto) 1.9 [place] # (Auto) 0.3 Eos # (Auto) 0.2 Baso # (Auto) 0.0 Abs Immat Gran (auto) 0.01 Absolute Neuts (auto) 2.7 Absolute Nucleated RBC 0.000 Nucleated RBC % (auto) 0.0 PT INR VBG pH VBG pCO2 VBG pO2 VBG HCO3 VBG O2 Saturation VBG Base Excess Sodium 145 Potassium 5.4 H Chloride 101 Carbon Dioxide 13 L Anion Gap 36 H BUN 21 H Creatinine 2.08 H Estim Creat Clear Calc 38.1 Estimated GFR 36 POC Glucose > 600 H* Random Glucose 730 H* Lactic Acid Calcium 10.2 Phosphorus Magnesium Total Bilirubin 0.4 Direct Bilirubin 0.1 AST 42 H ALT 54 H Alkaline Phosphatase 149 H Troponin I High Sens < 2.7 Total Protein 9.5 H Albumin 4.8 Lipase 19 Beta-Hydroxybutyrate Urine Color Yellow Urine Appearance Clear Urine pH 5.0 Ur Specific [place] >= 1.030 H Urine Protein 30 (1+) H Urine Glucose (UA) >=1000 H Urine Ketones >=160 Urine Blood Negative Urine Nitrite Negative Ur Leukocyte Esterase Negative Urine RBC 0-2 Urine WBC 0-5 Ur Squamous Epith Cells 0-2 Urine Bacteria None Seen Hyaline Casts 0-2 Influenza Type A (PCR) NEGATIVE Influenza Type B (PCR) NEGATIVE RSV RNA Qual (PCR) NEGATIVE SARS-CoV-2 RNA (RT-PCR) NEGATIVE 05/08/24 05/08/24 05/08/24 14:41 15:34 16:22 WBC RBC Hgb Hct MCV MCH MCHC RDW Plt Count MPV Immature Gran % (Auto) Neut % (Auto) Lymph % (Auto) [place] % (Auto) Eos % (Auto) Baso % (Auto) Lymph # (Auto) [place] # (Auto) Eos # (Auto) Baso # (Auto) Abs Immat Gran (auto) Absolute Neuts (auto) Absolute Nucleated RBC Nucleated RBC % (auto) PT 11.3 INR 1.0 VBG pH VBG pCO2 VBG pO2 VBG HCO3 VBG O2 Saturation VBG Base Excess Sodium Potassium Chloride Carbon Dioxide Anion Gap BUN Creatinine Estim Creat Clear Calc Estimated GFR POC Glucose > 600 H* > 600 H* Random Glucose Lactic Acid Calcium Phosphorus Magnesium Total Bilirubin Direct Bilirubin AST ALT Alkaline Phosphatase Troponin I High Sens Total Protein Albumin Lipase Beta-Hydroxybutyrate Urine Color Urine Appearance Urine pH Ur Specific [place] Urine Protein Urine Glucose (UA) Urine Ketones Urine Blood Urine Nitrite Ur Leukocyte Esterase Urine RBC Urine WBC Ur Squamous Epith Cells Urine Bacteria Hyaline Casts Influenza Type A (PCR) Influenza Type B (PCR) RSV RNA Qual (PCR) SARS-CoV-2 RNA (RT-PCR) 05/08/24 05/08/24 05/08/24 16:32 16:34 16:49 WBC RBC Hgb Hct MCV MCH MCHC RDW Plt Count MPV Immature Gran % (Auto) Neut % (Auto) Lymph % (Auto) [place] % (Auto) Eos % (Auto) Baso % (Auto) Lymph # (Auto) [place] # (Auto) Eos # (Auto) Baso # (Auto) Abs Immat Gran (auto) Absolute Neuts (auto) Absolute Nucleated RBC Nucleated RBC % (auto) PT INR VBG pH 7.16 L* 7.15 L* VBG pCO2 34 35 VBG pO2 44 49 VBG HCO3 12 L 12 L VBG O2 Saturation 73.0 73.0 VBG Base Excess -14.7 -15.0 Sodium Potassium Chloride Carbon Dioxide Anion Gap BUN Creatinine Estim Creat Clear Calc Estimated GFR POC Glucose Random Glucose Lactic Acid Calcium Phosphorus Magnesium Total Bilirubin Direct Bilirubin AST ALT Alkaline Phosphatase Troponin I High Sens Total Protein Albumin Lipase Beta-Hydroxybutyrate 11.23 H Urine Color Urine Appearance Urine pH Ur Specific [place] Urine Protein Urine Glucose (UA) Urine Ketones Urine Blood Urine Nitrite Ur Leukocyte Esterase Urine RBC Urine WBC Ur Squamous Epith Cells Urine Bacteria Hyaline Casts Influenza Type A (PCR) Influenza Type B (PCR) RSV RNA Qual (PCR) SARS-CoV-2 RNA (RT-PCR) 05/08/24 05/08/24 05/08/24 18:59 20:02 20:37 WBC RBC Hgb Hct MCV MCH MCHC RDW Plt Count MPV Immature Gran % (Auto) Neut % (Auto) Lymph % (Auto) [place] % (Auto) Eos % (Auto) Baso % (Auto) Lymph # (Auto) [place] # (Auto) Eos # (Auto) Baso # (Auto) Abs Immat Gran (auto) Absolute Neuts (auto) Absolute Nucleated RBC Nucleated RBC % (auto) PT INR VBG pH VBG pCO2 VBG pO2 VBG HCO3 VBG O2 Saturation VBG Base Excess Sodium Potassium Chloride Carbon Dioxide Anion Gap BUN Creatinine Estim Creat Clear Calc Estimated GFR POC Glucose 482 H* 361 H* Random Glucose Lactic Acid 1.4 Calcium Phosphorus Magnesium Total Bilirubin Direct Bilirubin AST ALT Alkaline Phosphatase Troponin I High Sens Total Protein Albumin Lipase Beta-Hydroxybutyrate Urine Color Urine Appearance Urine pH Ur Specific [place] Urine Protein Urine Glucose (UA) Urine Ketones Urine Blood Urine Nitrite Ur Leukocyte Esterase Urine RBC Urine WBC Ur Squamous Epith Cells Urine Bacteria Hyaline Casts Influenza Type A (PCR) Influenza Type B (PCR) RSV RNA Qual (PCR) SARS-CoV-2 RNA (RT-PCR) 05/08/24 05/08/24 05/08/24 20:38 20:42 20:59 WBC RBC Hgb Hct MCV MCH MCHC RDW Plt Count MPV Immature Gran % (Auto) Neut % (Auto) Lymph % (Auto) [place] % (Auto) Eos % (Auto) Baso % (Auto) Lymph # (Auto) [place] # (Auto) Eos # (Auto) Baso # (Auto) Abs Immat Gran (auto) Absolute Neuts (auto) Absolute Nucleated RBC Nucleated RBC % (auto) PT INR VBG pH 7.32 VBG pCO2 19 VBG pO2 207 VBG HCO3 10 L VBG O2 Saturation 100.0 VBG Base Excess -13.0 Sodium 150 H Potassium 4.0 D Chloride 122 H D Carbon Dioxide 9 L* D Anion Gap 23 H BUN 17 H Creatinine 1.52 H Estim Creat Clear Calc 52.1 Estimated GFR 51 POC Glucose 270 H Random Glucose 347 H Lactic Acid Calcium 9.2 D Phosphorus 2.6 L Magnesium 2.4 Total Bilirubin Direct Bilirubin AST ALT Alkaline Phosphatase Troponin I High Sens Total Protein Albumin 4.0 Lipase Beta-Hydroxybutyrate Urine Color Urine Appearance Urine pH Ur Specific [place] Urine Protein Urine Glucose (UA) Urine Ketones Urine Blood Urine Nitrite Ur Leukocyte Esterase Urine RBC Urine WBC Ur Squamous Epith Cells Urine Bacteria Hyaline Casts Influenza Type A (PCR) Influenza Type B (PCR) RSV RNA Qual (PCR) SARS-CoV-2 RNA (RT-PCR) 05/08/24 05/08/24 05/09/24 21:55 23:07 00:01 WBC RBC Hgb Hct MCV MCH MCHC RDW Plt Count MPV Immature Gran % (Auto) Neut % (Auto) Lymph % (Auto) [place] % (Auto) Eos % (Auto) Baso % (Auto) Lymph # (Auto) [place] # (Auto) Eos # (Auto) Baso # (Auto) Abs Immat Gran (auto) Absolute Neuts (auto) Absolute Nucleated RBC Nucleated RBC % (auto) PT INR VBG pH VBG pCO2 VBG pO2 VBG HCO3 VBG O2 Saturation VBG Base Excess Sodium Potassium Chloride Carbon Dioxide Anion Gap BUN Creatinine Estim Creat Clear Calc Estimated GFR POC Glucose 289 H 219 H 208 H Random Glucose Lactic Acid Calcium Phosphorus Magnesium Total Bilirubin Direct Bilirubin AST ALT Alkaline Phosphatase Troponin I High Sens Total Protein Albumin Lipase Beta-Hydroxybutyrate Urine Color Urine Appearance Urine pH Ur Specific [place] Urine Protein Urine Glucose (UA) Urine Ketones Urine Blood Urine Nitrite Ur Leukocyte Esterase Urine RBC Urine WBC Ur Squamous Epith Cells Urine Bacteria Hyaline Casts Influenza Type A (PCR) Influenza Type B (PCR) RSV RNA Qual (PCR) SARS-CoV-2 RNA (RT-PCR) 05/09/24 05/09/24 05/09/24 01:12 02:14 02:59 WBC RBC Hgb Hct MCV MCH MCHC RDW Plt Count MPV Immature Gran % (Auto) Neut % (Auto) Lymph % (Auto) [place] % (Auto) Eos % (Auto) Baso % (Auto) Lymph # (Auto) [place] # (Auto) Eos # (Auto) Baso # (Auto) Abs Immat Gran (auto) Absolute Neuts (auto) Absolute Nucleated RBC Nucleated RBC % (auto) PT INR VBG pH VBG pCO2 VBG pO2 VBG HCO3 VBG O2 Saturation VBG Base Excess Sodium Potassium Chloride Carbon Dioxide Anion Gap BUN Creatinine Estim Creat Clear Calc Estimated GFR POC Glucose 220 H 221 H 269 H Random Glucose Lactic Acid Calcium Phosphorus Magnesium Total Bilirubin Direct Bilirubin AST ALT Alkaline Phosphatase Troponin I High Sens Total Protein Albumin Lipase Beta-Hydroxybutyrate Urine Color Urine Appearance Urine pH Ur Specific [place] Urine Protein Urine Glucose (UA) Urine Ketones Urine Blood Urine Nitrite Ur Leukocyte Esterase Urine RBC Urine WBC Ur Squamous Epith Cells Urine Bacteria Hyaline Casts Influenza Type A (PCR) Influenza Type B (PCR) RSV RNA Qual (PCR) SARS-CoV-2 RNA (RT-PCR) 05/09/24 05/09/24 05/09/24 04:07 05:08 05:11 WBC RBC Hgb Hct MCV MCH MCHC RDW Plt Count MPV Immature Gran % (Auto) Neut % (Auto) Lymph % (Auto) [place] % (Auto) Eos % (Auto) Baso % (Auto) Lymph # (Auto) [place] # (Auto) Eos # (Auto) Baso # (Auto) Abs Immat Gran (auto) Absolute Neuts (auto) Absolute Nucleated RBC Nucleated RBC % (auto) PT INR VBG pH 7.42 VBG pCO2 31 VBG pO2 66 VBG HCO3 20 L VBG O2 Saturation 93.0 VBG Base Excess -2.5 Sodium Potassium Chloride Carbon Dioxide Anion Gap BUN Creatinine Estim Creat Clear Calc Estimated GFR POC Glucose 228 H 228 H Random Glucose Lactic Acid Calcium Phosphorus Magnesium Total Bilirubin Direct Bilirubin AST ALT Alkaline Phosphatase Troponin I High Sens Total Protein Albumin Lipase Beta-Hydroxybutyrate Urine Color Urine Appearance Urine pH Ur Specific [place] Urine Protein Urine Glucose (UA) Urine Ketones Urine Blood Urine Nitrite Ur Leukocyte Esterase Urine RBC Urine WBC Ur Squamous Epith Cells Urine Bacteria Hyaline Casts Influenza Type A (PCR) Influenza Type B (PCR) RSV RNA Qual (PCR) SARS-CoV-2 RNA (RT-PCR) 05/09/24 05/09/24 05/09/24 05:18 06:04 07:15 WBC 4.8 RBC 5.36 D Hgb 13.8 L D Hct 41.1 L D MCV 76.7 L MCH 25.7 L MCHC 33.6 RDW 12.4 Plt Count 241 D MPV 8.9 L Immature Gran % (Auto) 0.2 Neut % (Auto) 25.6 L Lymph % (Auto) 55.6 H [place] % (Auto) 9.6 Eos % (Auto) 8.2 H Baso % (Auto) 0.8 Lymph # (Auto) 2.7 [place] # (Auto) 0.5 Eos # (Auto) 0.4 Baso # (Auto) 0.0 Abs Immat Gran (auto) 0.01 Absolute Neuts (auto) 1.2 L Absolute Nucleated RBC 0.000 Nucleated RBC % (auto) 0.0 PT INR VBG pH VBG pCO2 VBG pO2 VBG HCO3 VBG O2 Saturation VBG Base Excess Sodium 151 H Potassium 3.8 Chloride 122 H Carbon Dioxide 20 L Anion Gap 13 BUN 13 Creatinine 1.11 Estim Creat Clear Calc 71.4 Estimated GFR > 60 POC Glucose 222 H 173 H Random Glucose 229 H Lactic Acid Calcium 8.4 D Phosphorus 2.4 L Magnesium 2.2 Total Bilirubin Direct Bilirubin AST ALT Alkaline Phosphatase Troponin I High Sens Total Protein Albumin 3.4 L Lipase Beta-Hydroxybutyrate Urine Color Urine Appearance Urine pH Ur Specific [place] Urine Protein Urine Glucose (UA) Urine Ketones Urine Blood Urine Nitrite Ur Leukocyte Esterase Urine RBC Urine WBC Ur Squamous Epith Cells Urine Bacteria Hyaline Casts Influenza Type A (PCR) Influenza Type B (PCR) RSV RNA Qual (PCR) SARS-CoV-2 RNA (RT-PCR) 05/09/24 05/09/24 08:01 09:13 WBC RBC Hgb Hct MCV MCH MCHC RDW Plt Count MPV Immature Gran % (Auto) Neut % (Auto) Lymph % (Auto) [place] % (Auto) Eos % (Auto) Baso % (Auto) Lymph # (Auto) [place] # (Auto) Eos # (Auto) Baso # (Auto) Abs Immat Gran (auto) Absolute Neuts (auto) Absolute Nucleated RBC Nucleated RBC % (auto) PT INR VBG pH VBG pCO2 VBG pO2 VBG HCO3 VBG O2 Saturation VBG Base Excess Sodium Potassium Chloride Carbon Dioxide Anion Gap BUN Creatinine Estim Creat Clear Calc Estimated GFR POC Glucose 177 H 108 Random Glucose Lactic Acid Calcium Phosphorus Magnesium Total Bilirubin Direct Bilirubin AST ALT Alkaline Phosphatase Troponin I High Sens Total Protein Albumin Lipase Beta-Hydroxybutyrate Urine Color Urine Appearance Urine pH Ur Specific [place] Urine Protein Urine Glucose (UA) Urine Ketones Urine Blood Urine Nitrite Ur Leukocyte Esterase Urine RBC Urine WBC Ur Squamous Epith Cells Urine Bacteria Hyaline Casts Influenza Type A (PCR) Influenza Type B (PCR) RSV RNA Qual (PCR) SARS-CoV-2 RNA (RT-PCR) Progress Note: A&P Assessment and plan (1) DKA (diabetic ketoacidosis): Status: Acute Plan Assessment: Gentleman with new diagnosis of diabetes mellitus admitted with diabetic ketoacidosis now titrated off Plan: Neuro: No acute issues. Cardiac: No acute issues. Pulmonary: No acute issues. Renal: Acute renal failure and hyperkalemia secondary to diabetic ketoacidosis, resolved. Endo: Diabetic acidosis as initial diagnosis diabetes mellitus, titrated off insulin drip. Continue subcutaneous insulin. GI: No acute issues. ID: No acute issues Heme/Onc: No acute issues. Psych: No acute issues. Miscellaneous: No acute issues. Prophylaxis: Heparin Diet: Diabetic Quality Stroke Does the patient have a stroke diagnosis?: No VTE Prior VTE?: No VTE Risk Level:: Medical - moderate - high VTE Device Contraindication: Treatment Not Indicated VTE Drug Contraindication: N/A - Med Ordered
[2024-05-09 10:12] LABS: Glucose, Whole Blood 97 mg/dL (60-115)
[2024-05-09] MEDS: Insulin Glargine,Hum.rec.anlog 100 UNIT/ML 10 ML VIAL 50 UNIT SUBCUT (10:23)
[2024-05-09] MEDS: Albumin Human 25 % 100 ML IV (10:24)
[2024-05-09 11:23] LABS: Glucose, Whole Blood 115 mg/dL (60-115)
[2024-05-09 12:48] LABS: Anion Gap 13 (12-20); Blood Urea Nitrogen 12 mg/dL (9-16); Calcium 9.1 mg/dL (8.4-10.2); Carbon Dioxide 26 mmol/L (22-29); Chloride 115 mmol/L (96-108); Creatinine Clr Calc Pharmacy 70.1; Estimated Glomerular Filt Rate > 60; Glucose Random 240 mg/dL (60-115); Sodium 150 mmol/L (135-145)
--- NOTE | 2024-05-09 13:30 | MHC.CM.PN ---
Pt will be transferred out of ICU to a medical floor. Pt speaks Swahili: Virtual hand riveter needs to be used to communicate. Pt lives w/spouse and children, has no services or medical equiptment and sees a provider at [facility] but unsure who. Pt newly dx w/DM and will need teaching to manage dietary and medication needs. Of note, pt is very needle phobic. Discussed having spouse or family participate w/DM teaching to assist pt w/management. Family can assist w/transportation to home.
[2024-05-09 16:14] LABS: Glucose, Whole Blood 263 mg/dL (60-115)
[2024-05-09] MEDS: Insulin Lispro 100 UNIT/ML 3 ML VIAL SUBCUT ×2 (16:49→21:20)
--- NOTE | 2024-05-09 17:31 | PC.NURSE ---
Pt. alert and oriented x4, Swahili speaking only, practical nursing instructor machine in the room. Patient have own meds in pt's specific bin S3W. Some education provided about diabetes, seems patient is going to need continuing education in his own language.
[2024-05-09 20:22] LABS: Glucose, Whole Blood 262 mg/dL (60-115)
[2024-05-10 04:00] VITALS: BP 106/58; PULSE 69; RESP 18; TEMP 36.1; O2SAT 99
[2024-05-10] MEDS: Pantoprazole Sodium 40 MG/10 ML VIAL IVPUSH (05:48)
[2024-05-10 06:00] VITALS: BMI 23.0
[2024-05-10 06:30] LABS: Basophils Percent Auto 0.5 % (0-2); Eosinophils Absolute Auto 0.5 X10*3/uL (0.0-0.4); Eosinophils Percent Auto 11.5 % (0-4); Hematocrit 37.1 % (42.0-52.0); Hemoglobin 12.7 g/dl (14.0-18.0); Imm Gran Abs Auto 0.01 X10*3/uL (0.00-0.03); Imm Gran Pct Auto 0.2 % (0.0-0.4); Lymphocytes Absolute Auto 2.3 X10*3/uL (1.2-4.9); Lymphocytes Percent Auto 55.8 % (20-40); MANUAL DIFF FLAG SCAN; Mean Corpuscular HGB Conc 34.2 g/dl (31.0-36.0); Mean Corpuscular Hemoglobin 25.9 pg (27.0-33.0); Mean Corpuscular Volume 75.6 fL (80.0-98.0); Mean Platelet Volume 8.6 fL (9.4-12.4); Monocytes Absolute Auto 0.4 X10*3/uL (0.1-1.2); Monocytes Percent Auto 8.4 % (2-11); Neutrophils Percent Auto 23.6 % (45-73); Platelet Count 189 X10*3/uL (160-400); Red Blood Count 4.91 X10*6/uL (4.60-5.80); Red Cell Distribution Width 11.9 % (11.0-16.0); SCAN SMEAR FLAG 1; White Blood Count 4.2 X10*3/uL (4.8-10.8)
[2024-05-10 06:54] LABS: Albumin Level 3.5 g/dL (3.5-5.0); Anion Gap 11 (12-20); Blood Urea Nitrogen 9 mg/dL (9-16); Calcium 8.7 mg/dL (8.4-10.2); Carbon Dioxide 27 mmol/L (22-29); Chloride 111 mmol/L (96-108); Estimated Glomerular Filt Rate > 60; Glucose Random 100 mg/dL (60-115); Magnesium 1.8 mg/dL (1.6-2.6); Phosphorus 3.1 mg/dL (2.7-4.5); Potassium 3.1 mmol/L (3.3-5.1); Sodium 146 mmol/L (135-145)
[2024-05-10 07:23] VITALS: BP 110/69; PULSE 71; RESP 14; TEMP 36.6; O2SAT 99
[2024-05-10 07:32] LABS: Glucose, Whole Blood 216 mg/dL (60-115)
[2024-05-10] MEDS: Insulin Glargine,Hum.rec.anlog 100 UNIT/ML 10 ML VIAL 50 UNIT SUBCUT (07:48)
[2024-05-10] MEDS: Famotidine 20 MG TABLET PO (07:48)
[2024-05-10] MEDS: Insulin Lispro 100 UNIT/ML 3 ML VIAL SUBCUT ×2 (07:48→11:47)
[2024-05-10] MEDS: Potassium Chloride ER 20 MEQ TAB.ER.PRT 40 MEQ PO ×2 (07:48→11:48)
[2024-05-10] MEDS: [UNRECOGNIZED DRUG - OTHER] PO ×2 (07:49→11:48)
[2024-05-10] MEDS: TETRACYCLINE PO ×2 (07:49→11:48)
[2024-05-10] MEDS: METRONIDAZOLE PO ×2 (07:49→11:48)
[2024-05-10] MEDS: 0.9 % Sodium Chloride Flush 3 ML SYRINGE IVFLUSH (07:54)
[2024-05-10 08:11] LABS: SLIDE REVIEW VERIFIED
[2024-05-10 08:27] LABS: Estimated Average Glucose 355 mg/dL; Hemoglobin A1C 432.7907 umol/L; Total Hemoglobin (HGBA1C) 3344.4385 umol/L
[2024-05-10] MEDS: Heparin Sodium,Porcine 5,000 UNIT/ML VIAL 5000 UNIT SUBCUT (10:05)
--- NOTE | 2024-05-10 10:14 | PC.NURSE ---
pt educated using tail end rider tablet about insulin administration and checking blood sugars. Pt verbally understood.
--- NOTE | 2024-05-10 11:02 | W.MHC.F2F ---
Service Date Service Date: 05/10/24 Encounter Date of encounter: 05/10/24 Reasons for Services Signs and symptoms assessed: newly diagnosed diabetes on Insulin Reason for assisted: diabetic teaching, monitoring of unstable blood sugar, medication management and teach disease management Homebound: Leaving the home is medically contraindicated at this time without the asist of a device and/or another person due th the listed conditions above and below. Reason homebound: other Certification: Based on the above findings, I certify that this patient is confined to the home and needs intermittent assisted care, physical therapy and/or speech therapy, or continues to need occupational therapy. The patient is under my care, and I have initiated the establishment of the plan of care. The patient will be followed by a physician who will periodically review the plan of care. Time Spent With Patient Time: Total time managing care of this patient today ____ minutes.
--- NOTE | 2024-05-10 11:18 | P.DS_ITS ---
DS: Providers Provider Date of Service: 05/10/24 Date of admission: 05/08/24 17:23 Date of discharge: 05/10/24 Primary care physician: Unknown Physician DS: Diagnosis Discharge Diagnosis (1) DKA (diabetic ketoacidosis): Status: Acute (2) Diabetes mellitus: Status: Acute (3) Acute hypernatremia: Status: Acute (4) Acute kidney injury: Status: Acute (5) Metabolic acidosis: Status: Acute (6) Acute hypokalemia: Status: Acute DS: Summary Hospital Course Hospital Course: Admission note HPI The patient is a 38-year-old [place] from [facility] speaking only male with no past medical history who presented to the emergency department after 2 weeks with generalized weakness, thirsty, and increased urination.? He has no history of diabetes.?On arrival to the emergency department,? patient is tachycardic to 120s,? afebrile. Laboratory data significant for? venous gas:? 7.16/34/44/12, serum potassium 5.4,? serum bicarb 13, anion gap 36, BUN 21, creatinine 2.08, random glucose 730, beta hydroxybutyrate 11.23 ED course:? the patient received a total of 2 L bolus,? 5 units IV push of insulin and initiated on insulin drip.? On arrival to ICU,? patient?s son brought medications from home,? were states the patient is on Pylera (Bismuth subcitrate, metronidazole, tetracycline) combination drug,? but patient was unsure as to why he was taking this medication,? he states he was given medication by? [facility] provider after he had blood work done. Will assume it is for treatment of? H pylori as patient was also placed on famotidine. But will obtain records from facility. ? Hospital course The patient speaks Swahili and online interpretor was used to speak to him. He asked many questions all where answered. The patient was admitted to ICU for anion-gap metabolic acidosis with evidece of hyperglycemia and elevated Beta-hydroxybutyrate treated with IV fluids and IV insulin with good response as gap closed and he was able to tolerate PO. unclear if this is type 1 or 2 diabetes as HbA1c of 14 now suggesting long course of the disease. he has no reported vision changes or neuropathy. advised to follow with opthalmology for evaluation. switched to 50 units of Lantus while inpatient but given his new diagnosis and weight will discharge him on daily dose of 30 units Lantus and SSI along with Metformin 500 mg twice a day with a plan to be followed by [facility] for close monitoring and follow up with PCP after recording his glucose readings over the next week or two. diabetic diet explained and instructions added. he received diabetic education while inpatient about insulin administration. Acute kidney injury complicated with metabolic acidosis resolved with IV fluids and hyperglycemia correction. Acute hypernatremia corrected with hydration. he was advised to stay well hydrated and avoid dehydration. Acute hypokalemia was replaced with PO potassium supplement. to be follow as outpatient with repeat BMP next week Discharge plan Patient needs a diabetic diet, increase exercise and monitor blood sugar. instruction provided. check sugar 4 times daily and follow with your PCP for adjustments of medications Start Metformin 500 mg two times a day Start Sliding scale Insulin as explained Start Insulin lantus (Long acting) one time a day ONLY Glucagon injection as needed for low blood sugar come back to ED for any too High >400 or low <70 readings or if symptomatic. otherwise speak with PCP for advice. Time Attestation Discharge Coordination Time (in mins): 45 Quality: Safe Use of Opioids Does Pt have an Active Cancer Diagnosis on the Problem List?: No Quality: Stroke Does the patient have a stroke diagnosis?: No Physical Exam Vital Signs: Vital Signs: Last Vital Signs Temp 97.8 F 05/10/24 07:23 Pulse 71 05/10/24 07:23 Resp 14 05/10/24 07:23 BP 110/69 05/10/24 07:23 Pulse Ox 99 05/10/24 07:23 O2 Del Method Room Air 05/10/24 07:23 BMI result Body Mass Index 23.0 Const: Other: Constitutional : Awake, interactive, not in distress Neck : Normal inspection, Supple Cardiovascular : RRR, no JVP, no lower extremity edema Respiratory : good bilateral air entry, no crackles, wheezes or rhonchi Gastrointestinal: soft, lax, Normal bowel sounds, Non tender Skin : Warm, Dry Neurological : Alert & oriented x3, No focal deficit , CN 2-12 within normal DS: Data Data Completed and Pending Labs on day of discharge: Laboratory Results - last 24 hr 05/09/24 05/09/24 05/09/24 11:18 12:16 16:06 WBC RBC Hgb Hct MCV MCH MCHC RDW Plt Count MPV Immature Gran % (Auto) Neut % (Auto) Lymph % (Auto) [place] % (Auto) Eos % (Auto) Baso % (Auto) Lymph # (Auto) [place] # (Auto) Eos # (Auto) Baso # (Auto) Abs Immat Gran (auto) Absolute Neuts (auto) Absolute Nucleated RBC Nucleated RBC % (auto) Smear Tech's Comments Sodium 150 H Potassium 4.0 Chloride 115 H Carbon Dioxide 26 Anion Gap 13 BUN 12 Creatinine 1.13 Estim Creat Clear Calc 70.1 Estimated GFR > 60 POC Glucose 115 263 H Random Glucose 240 H Estimat Average Glucose Hemoglobin A1c % Calcium 9.1 D Phosphorus Magnesium Albumin 05/09/24 05/10/24 05/10/24 20:18 06:19 07:27 WBC 4.2 L RBC 4.91 Hgb 12.7 L Hct 37.1 L MCV 75.6 L MCH 25.9 L MCHC 34.2 RDW 11.9 Plt Count 189 MPV 8.6 L Immature Gran % (Auto) 0.2 Neut % (Auto) 23.6 L Lymph % (Auto) 55.8 H [place] % (Auto) 8.4 Eos % (Auto) 11.5 H Baso % (Auto) 0.5 Lymph # (Auto) 2.3 [place] # (Auto) 0.4 Eos # (Auto) 0.5 H Baso # (Auto) 0.0 Abs Immat Gran (auto) 0.01 Absolute Neuts (auto) 1.0 L Absolute Nucleated RBC 0.000 Nucleated RBC % (auto) 0.0 Smear Tech's Comments VERIFIED Sodium 146 H Potassium 3.1 L D Chloride 111 H Carbon Dioxide 27 Anion Gap 11 L BUN 9 Creatinine 0.90 Estim Creat Clear Calc 88.0 Estimated GFR > 60 POC Glucose 262 H 216 H Random Glucose 100 Estimat Average Glucose 355 Hemoglobin A1c % 14.0 H Calcium 8.7 Phosphorus 3.1 Magnesium 1.8 Albumin 3.5 Preliminary micro results at discharge 05/08/24 15:34 Blood Culture - Preliminary Blood - Venous No growth after 24 hours. 05/08/24 14:07 Blood Culture - Preliminary Blood - Venous No growth after 24 hours. Imaging Chest x-ray: Radiologist's impression: ITS Impressions Chest X-Ray 05/08/24 13:52 IMPRESSION: No acute pulmonary disease. Electronically signed by: Rob Wheatley MD 05/08/2024 06:47 PM EST RP Discharge Plan Discharge Anticipated Discharge Date/Time: 05/10/24 10:33 Patient Disposition: Home Health Service Discharge Diagnosis: New onset Diabetes Referrals: Ronn ANDUJAR [Outside] - 1 Week (HOME SERVICES FOR [facility] VISITS- A NURSE WILL CALL TO SET UP FIRST VISIT.) Physician,Thad J [Primary Care Provider] - 1 Week Discharge Medications: New (DME) FreeStyle Lite Strips Strip See Rx Instructions .ROUTE .MEDSUPPLY Qty: 100 2RF Rx Instructions: QID (DME) lancets Misc See Rx Instructions .ROUTE .MEDSUPPLY Qty: 200 1RF Rx Instructions: QIDAC (DME) blood-glucose meter [FreeStyle Lite Meter] Kit See Rx Instructions .ROUTE .MEDSUPPLY Qty: 1 0RF Rx Instructions: As directed insulin lispro [Humalog KwikPen Insulin] 100 unit/mL insulin pen See Protocol subcut USEASDIRECTD Qty: 15 0RF Protocol: Insulin Correction Scale Less than or equal to 110 ---- Give (units): 0 111 to 150 Give (units): 0 151 to 200 Give (units): 2 201 to 250 Give (units): 4 251 to 300 Give (units): 6 301 to 350 Give (units): 8 Greater than 350 Give (units): 10 Call MD if Blood Glucose > : 350 Rx Instructions: 111 to 150 = 2 units 151 to 200 = 4 units 201 to 250 = 6 251 to 300 = 8 301 to 350 = 10 > 350 take 15 and call MD GOULD) pen needle, diabetic [Pen Needle] 31 gauge x 5/16 needle See Rx Instructions .ROUTE .MEDSUPPLY Qty: 1200 0RF Rx Instructions: QID alcohol swabs [Alcohol Pads] Pads, Medicated 1 pad topical QIDACHS Qty: 200 0RF insulin glargine 100 unit/mL (3 mL) insulin pen 30 unit subcut QAM Qty: 15 0RF metformin 500 mg tablet 500 mg PO BIDWMEAL Qty: 180 0RF GlucaGen HypoKit 1 mg recon soln 1 mg subcut Q20M PRN (Reason: hypoglycemia) Qty: 1 0RF Rx Instructions: until target blood sugar attained Continued acetaminophen 500 mg tablet 1,000 mg PO Q6H PRN (Reason: pain) pantoprazole 20 mg tablet,delayed release (DR/EC) 20 mg PO BID@0630,1630 famotidine 20 mg tablet 20 mg PO BID calcium carbonate [Ton-Gest Antacid] 200 mg calcium (500 mg) tablet,chewable 500 mg PO BID PRN (Reason: Heartburn) Rx Instructions: Chew and swallow naproxen 500 mg tablet 500 mg PO BIDWM bismuth subcit [id number] [Pylera] 140-125-125 mg capsule 3 cap PO QIDACHS Discharge Orders: Discharge Order (Routine); Ordered 05/10/24 Ordered By: Aviva Trammell Diet: Diabetic diet Activity on Discharge: As tolerated Stand Alone Forms: Patient Portal Discharge page, Work/School Release Print Language: Swahili Other Ambulatory Orders: Basic Metabolic Panel (Routine) Timeframe: 1 Week Facility: [facility] - Location: Laboratory Ordered By: Aviva Trammell Care Plan Goals: You have newly diagnosed diabetes You need a diabetic diet, increase exercise and monitor blood sugar check sugar 4 times daily and follow with your PCP for adjustments of medications Start Metformin 500 mg two times a day Start Sliding scale Insulin as explained Start Insulin lantus (Long acting) one time a day ONLY Glucagon injection as needed for low blood sugar come back to ED for any too High >400 or low <70 readings or if symptomatic. otherwise speak with PCP for advice. Health Concerns: NEw onset diabetes mellitus Plan of Treatment: Insulin therapy Metformin Visiting nurses PCP follow up Assessment: as above Patient Instructions: Basic Carbohydrate Counting (DC), Mediterranean Diet (DC)
--- NOTE | 2024-05-10 11:19 | MHC.CM.PN ---
Addendum entered by Nadine Weiner 05/10/24 12:48: [facility] HAS BEEN ABLE TO ACCEPT AND WILL BE ABLE TO SEE PT SOONER. PT IS AGREEABLE TO [facility] SERVICES. Original Note: DP: PT HAS BEEN MEDICALLY CLEARED FOR DC HOME WITH NEW [facility]. AWAITING RESPONSE FROM [facility]. PT'S FAMILY WILL TRANSPORT HOME.
[2024-05-10 11:39] LABS: Glucose, Whole Blood 309 mg/dL (60-115)
[2024-05-10 12:40] LABS: Anion Gap 14 (12-20); Blood Urea Nitrogen 9 mg/dL (9-16); Calcium 8.6 mg/dL (8.4-10.2); Carbon Dioxide 22 mmol/L (22-29); Chloride 109 mmol/L (96-108); Estimated Glomerular Filt Rate > 60; Glucose Random 293 mg/dL (60-115); Potassium 4.8 mmol/L (3.3-5.1); Sodium 140 mmol/L (135-145)
== END 2024-05-10 14:14 | disposition home health service (06) | DRG 420 ==
LOC: HO.ED 17:30 → HO.EDOVER 17:38 → HO.ICU 17:40 → HO.S3 05-09 13:21
PROVIDERS: Registered Nurse Community Health; Admitting Provider Internal Medicine Pulmonary Disease; Emergency Provider Emergency Medicine; Visit Provider Student in an Organized Health Care Education/Training Program
DX: E11.10 Type 2 diabetes mellitus with ketoacidosis without coma (principal); N17.9 Acute kidney failure, unspecified; E87.0 Hyperosmolality and hypernatremia; E87.5 Hyperkalemia; Z79.899 Other long term (current) drug therapy
CPT/HCPCS: 0241U; 36415; 71045; 80048; 80076; 81001; 81003; 82010; 82040; 82803; 82947; 83036; 83605; 83690; 83735; 83880; 84100; 84484; 85025; 85610; 87040; 93005; 99285; J1644; J2470; J7120; P9047

== ENCOUNTER → 2024-05-08 13:52 | Outpatient (BNV) | payer MEDICAID, SELFPAY | PROVIDERS: Admitting Provider Internal Medicine Pulmonary Disease; Emergency Provider Emergency Medicine; Visit Provider Internal Medicine Cardiovascular Disease | DX: R00.0 Tachycardia, unspecified (principal); R94.31 Abnormal electrocardiogram [ECG] [EKG]; R53.1 Weakness | CPT/HCPCS: 93010 ==

== ENCOUNTER → 2024-05-08 17:23 | Outpatient (BNV) | payer MEDICAID, SELFPAY | PROVIDERS: Admitting Provider Internal Medicine Pulmonary Disease; Emergency Provider Emergency Medicine; Visit Provider Student in an Organized Health Care Education/Training Program | DX: E11.10 Type 2 diabetes mellitus with ketoacidosis without coma (principal); E87.0 Hyperosmolality and hypernatremia; N17.9 Acute kidney failure, unspecified; E87.20 Acidosis, unspecified; E87.6 Hypokalemia | CPT/HCPCS: 99239; G0180 ==

== ENCOUNTER → 2024-05-08 17:23 | Outpatient (BNV) | payer MEDICAID, SELFPAY | PROVIDERS: Admitting Provider Internal Medicine Pulmonary Disease; Emergency Provider Emergency Medicine; Visit Provider Internal Medicine Pulmonary Disease | DX: E11.10 Type 2 diabetes mellitus with ketoacidosis without coma (principal) | CPT/HCPCS: 99232 ==

== ENCOUNTER → 2024-05-08 17:23 | Outpatient (BNV) | payer MEDICAID, SELFPAY | PROVIDERS: Admitting Provider Internal Medicine Pulmonary Disease; Emergency Provider Emergency Medicine; Visit Provider Registered Nurse Community Health | DX: E11.10 Type 2 diabetes mellitus with ketoacidosis without coma (principal) | CPT/HCPCS: 99223 ==